=== PATIENT | male | born 1950 | race Caucasian/White ===

== ENCOUNTER 2017-06-12 09:11 | Inpatient (IN) ==
[2017-06-12] MEDS: 0.9 % Sodium Chloride 1,000 ML IVC SCH (10:04)
[2017-06-12] MEDS ORDERED: 0.9 % Sodium Chloride 1,000 ML ONE (11:00)
[2017-06-12] MEDS ORDERED: Heparin 1,000 UNITS/500 mL 500 ML ONE (11:00)
[2017-06-12] MEDS ORDERED: Nitroglycerin 1,000 MCG/10 ML VIAL IV ONE (11:01)
[2017-06-12] MEDS ORDERED: ISOVUE-370 200 ML INFUS..BTL IV ONE (11:01)
[2017-06-12] MEDS ORDERED: *HR* Heparin 10,000 UNIT/10 ML VIAL ONE (11:01)
[2017-06-12] MEDS ORDERED: Verapamil 5 MG/2 ML VIAL ONE (11:15)
--- NOTE | 2017-06-12 11:21 | History & Physical Report ---
Date of Encounter: 06/12/17 Time of Encounter: 11:00 24 Hour HP Update - Instructions Instructions: If the History and Physical is less than 30 days old and was completed prior to A.M. admission and or procedure and has NOT been updated on calendar day of procedure please complete this update prior to performing procedure. - Update Patient reports changes in Medical Condition: No Changes in examination, assessment, or condition: No Changes in Medication: No Preop tests/diagnostics Reviewed: Yes Surgery Remains Indicated: Yes Consent for Planned Operative Procedure(s) Verified: Yes - Pre-Operative Checklist Preoperative Checklist Indicated: No Prophylactic Antibiotic Ordered: No Home Medications Include Beta Coni: Yes Beta Coni Taken Today (Day of Surgery): Yes Beta Coni Taken Yesterday (Day Prior to Surgery): Yes Is VTE Prophylaxis Indicated?: NO
--- NOTE | 2017-06-12 11:21 | Pre-Sedation Evaluation ---
Pre-sedation evaluation - Pre-sedation checklist Date of procedure: 06/12/17 Procedure: [facility] Recent Vitals: Last Vital Signs Temp 98.9 F 06/12/17 09:47 Pulse 71 06/12/17 09:47 Resp 18 06/12/17 09:47 BP 108/55 06/12/17 09:47 Pulse Ox 96 06/12/17 09:47 H&P (including ROS) documented in medical record: Yes Previous reaction to sedatives/anesthetics: No Dietary Status: NPO after Midnight Airway Assessment: Patient can open mouth completely, TMJ function normal, Micrognathia (under-bite, receding chin) absent, Neck with adequate range of motion Dentition: No loose teeth or bridges Possible difficult airway: No ASA Classification *see protocol: CLASS II-Mild systemic disease Plan of Care: Pt appropriate candidate for procedure/moderate/conscious sedation , Risks/benefits of procedure/sedation discussed w/ patient/family
[2017-06-12] MEDS ORDERED: *HR* Midazolam HCl 2 MG/2 ML VIAL ONE (11:31)
[2017-06-12] MEDS ORDERED: *HR* FentaNYL (PF) 100 MCG/2 ML VIAL ONE (11:31)
[2017-06-12] MEDS ORDERED: Nitroglycerin 0.4 MG TAB.SUBL SL PRN (12:57)
--- NOTE | 2017-06-12 17:03 | Invasive Diagnostic Lab Proc ---
Name: Allen Corbett Date of Study: 06/12/2017 Date: 1950 Ht: 66.0in Medical Record#: [id number] Age: 67 Wt: 124.34lb Gender: Male BSA: 1.63 Order #: [id number] BMI: 20.08 Physicians Procedure Physician: Karlee Tamayo MD, FACC Referring MD: Mukul Angeles DO,FACQi,GIANNA FARRAR Referring MD: Staff Name Position Time In Lora Sinclair RT (R) Monitor 11:22 AM YahirNatan RT (R) Scrub 11:22 AM Sasha Madrigal RN It Project Lead 11:22 AM Amaury Melgar RN It Project Lead 11:23 AM Indications Indication Pre-op Unstable Angina Procedures Performed Procedure L HRT ARTERY/VENTRICLE ANGIO Pre-Procedure Checklist Informed consent is complete signed and on chart. H&P is on chart. ID band is on and ID verified with patient. Patient NPO for procedure The procedure was described for the patient and questions were answered. Blood Pressure: 108/55 ECG is on chart. Rhythm: NSR Plan of Care Patient will tolerate the procedure without complications. Adequate level of comfort will be maintained. Hemodynamics will remain stable Patient will recover from procedure without complications. Respiratory function will be maintained. Cardiac rhythm will remain stable. Patient temperature will be maintained. Patient and/or family have verbalized understanding of the procedure. Patient Education Chief Complaint/Reason for Test: Cardiac Cath Developmental Category: Geriatric (65+ years) Developmentally Appropriate for Age: Yes Learning Barriers: None Education Needs: Procedure Education Method: Verbal Information Taught: Cardiac Cath Educational Evaluation: Able to repeat information Intravenous Access Time IV Size Location DC'd Fluid/Drip Rate Units RN 09:59 AM Started with 20g 1 1/4" Lt Antecubital Yes 0.9NaCl 50 ml/hr Shertia Parham RN 11:36 AM Started with 22g 1 " Rt Arm 0.9NaCl 50 ml/hr Sasha Madrigal RN Allergies No Known Allergies Vital Signs Time BP (mmHg) HR (bpm) O2 Sat. RR (bpm) LOC 10:00 AM 108 / 55 71 96 % 18 5 = Fully awake and oriented or at pre-proc level 11:23 AM / % 5 = Fully awake and oriented or at pre-proc level 11:23 AM / % 5 = Fully awake and oriented or at pre-proc level 11:38 AM / % 4 = Oriented but drowsy 11:53 AM / % 4 = Oriented but drowsy 12:08 PM / % 4 = Oriented but drowsy 12:23 PM / % 4 = Oriented but drowsy 12:01 PM 98 / 54 70 100 % 12:06 PM 97 / 51 54 100 % 12:11 PM 98 / 51 49 100 % 12:12 PM 102 / 54 48 100 % 12:16 PM 88 / 48 48 99 % 12:21 PM 86 / 45 50 98 % 12:26 PM 90 / 49 53 99 % 12:31 PM 88 / 41 51 99 % 12:36 PM 95 / 49 53 100 % 12:41 PM 106 / 60 86 100 % 11:41 AM 133 / 69 66 96 % 11:46 AM 129 / 56 60 99 % 11:51 AM 121 / 67 62 99 % 11:56 AM 76 / 41 56 % 11:57 AM 84 / 36 57 % 11:59 AM 85 / 49 55 100 % 01:00 PM 92 / 54 56 100 % 01:15 PM 92 / 54 55 100 % 16 5 = Fully awake and oriented or at pre-proc level 01:30 PM 101 / 57 51 100 % 16 5 = Fully awake and oriented or at pre-proc level 01:45 PM 104 / 64 51 100 % 16 5 = Fully awake and oriented or at pre-proc level 02:00 PM 106 / 58 53 100 % 16 5 = Fully awake and oriented or at pre-proc level 02:30 PM 99 / 47 56 100 % 16 5 = Fully awake and oriented or at pre-proc level 03:00 PM 103 / 55 54 100 % 15 5 = Fully awake and oriented or at pre-proc level 04:00 PM 93 / 53 53 100 % 16 5 = Fully awake and oriented or at pre-proc level 04:56 PM 159 / 87 % Procedural Medications Time Medication Dose Units Method Given By 11:40 AM Oxygen 2 L/min nasal cannula Amaury Melgar RN 11:44 AM Versed 2 mg Intravenous Amaury Melgar RN 11:44 AM Fentanyl 50 mcg Intravenous Amaury Melgar RN 11:51 AM Benadryl 25 mg Intravenous Amaury Melgar RN 11:54 AM Lidocaine 2% 1 ml Subcutaneous Karlee Tamayo MD, FACC 11:56 AM Heparin 4000 units Nitroglycerin 200 mcg Verapamil 2.5 mg Intraarterial Karlee Tamayo MD, [facility] 11:56 AM Oxygen 4 L/min nasal cannula Sasha Madrigal RN 12:04 PM Lidocaine 2% 1 ml Subcutaneous Karlee Tamayo MD, [facility] ASA Classification: CLASS II- Mild systemic disease (i.e. well-controlled diabetes, hypertension, asthma, cigarette smoking) Thanh Score Preprocedure Postprocedure Activity 2- Moves 4 extremities sustained head lift Activity 2- Moves 4 extremities sustained head lift Circulation 2- SBP +/= 20 points of pre-anesthetic level Circulation 2- SBP +/= 20 points of pre-anesthetic level Consciousness 2- Awake and alert oriented x 3 Consciousness 2- Awake and alert oriented x 3 O2 Saturation 2- Able to maintain O2 satruation of 92% on room air O2 Saturation 2- Able to maintain O2 satruation of 92% on room air Respiratory 2- Able to deep breathe and cough well Respiratory 2- Able to deep breathe and cough well Total Score 10 Total Score 10 Contrast Agent: Isovue Diagnostic Contrast: 68 ml Total Contrast: 68 ml Fluoro Dose: 188 mGy Procedure Log Time Note Enter By 11:21 AM 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 twilson 11:22 AM Patient charges- Angio tray pack, Navilyst 3mm J, Pulse Oximetry and ACIST tubing and transducer twilson 11:22 AM Case Delayed yes, previous procedure ran long twilson 11:22 AM Lora Sinclair RT (R) Position: Monitor Time in: : twilson 11:22 AM Natan Sinclair RT (R) Position: Scrub Time in: : twilson 11:23 AM Sasha Madrigal RN Position: It Project Lead Time in: : twilson 11:23 AM Amaury Melgar RN Position: It Project Lead Time in: : twilson 11:23 AM Time: :23 Patient comfortable and pain free: Yes twilson 11:23 AM Time: :23LOC: 5 = Fully awake and oriented or at pre-proc level twilson 11:27 AM Physician arrived 11: twilson 11:28 AM Meet and greet completed twilson 11: AM Sign in performed according to hospital policy. twilson 11:28 AM Procedure start 11:28 twilson 11: AM CathStat 11:30 AM Allens test abnormal on bilateral wrists. twilson 11:38 AM Time: 11:23 Patient comfortable and pain free: Yes twilson 11:38 AM Time: 11:23LOC: 5 = Fully awake and oriented or at pre-proc level twilson 11:40 AM Time: :40 Oxygen on at 2 L/min per nasal cannula by Amaury Melgar RN twilson 11:40 AM ASA Class CLASS II- Mild systemic disease (i.e. well-controlled diabetes, hypertension, asthma, cigarette smoking) twilson 11:41 AM Vitals capture started with the following parameters, Patient=Adult, Interval=5 min, Initial Sbvuiuxz=172 mmHg, Deflation Rate=5 mmHg, Cuff placed on Right Arm 11:41 AM HR=66 bpm, SVAW=508/69 mmhg, SpO2=96.0 % 11:44 AM Time: 11:44 Versed 2 mg Intravenous Given by Amaury Melgar RN twilson 11:44 AM Time: 11:44 Fentanyl 50 mcg Intravenous Given by Amaury Melgar RN twilson 11:45 AM Recorded ECG: HR=63 Condition=Condition 1 11:46 AM Hair removed from procedure site in procedure lab using clippers. Bilateral groin prepped with Chloraprep by Lora Sinclair (R), then patient was draped. Skin intact. twilson 11:46 AM Hair removed from procedure site in procedure lab using clippers. Left wrist prepped with Chloraprep by Sasha Madrigal RN, then patient was draped. Skin intact. twilson 11:46 AM HR=60 bpm, VCUK=136/56 mmhg, SpO2=99.0 % 11:50 AM Time out performed according to hospital policy twilson 11:50 AM Pressure channel 1 zeroed. 11:51 AM Time: 11:51 Benadryl 25 mg Intravenous Given by Amaury Melgar RN twilson 11:51 AM HR=62 bpm, OYCW=662/67 mmhg, SpO2=99.0 % 11:53 AM Time: 11:38LOC: 4 = Oriented but drowsy twilson 11:53 AM Time: :38 Patient comfortable and pain free: Yes twilson 11:54 AM Time: 11:54 1 ml Lidocaine 2% to left brachial Subcutaneous Given by Karlee Tamayo MD, [facility] twilson 11:54 AM Access obtained by percutaneous puncture. 6Fr 10cm Terumo Glidesheath sheath placed in left Brachial artery. [id number] twilson 11:56 AM Time: 11:56 Patient given 4,000 units Heparin, 200 mcg Nitroglycerin, and 2.5 mg Verapamil Intraarterial by Karlee Tamayo MD, [facility]. This is given to reduce risk of vessel spasm and thrombosis. twilson 11:56 AM Time: 11:56 Oxygen on at 4 L/min per nasal cannula by Sasha Madrigal RN twilson 11:56 AM HR=56 bpm, NIBP=76/41 mmhg 11:57 AM NIBP STAT measurement started. 11:57 AM HR=57 bpm, NIBP=84/36 mmhg 11:58 AM 5Fr FR 4 catheter inserted over the wire [facility] twilson 11:58 AM NIBP STAT measurement started. 11:59 AM Wire removed, intact. twilson 11:59 AM HR=55 bpm, NIBP=85/49 mmhg, WxX6=795.0 % 12:00 PM Pressure channel 1 zeroed. 12:00 PM Wire reinserted and wire and catheter removed, intact. twilson 12:01 PM HR=70 bpm, NIBP=98/54 mmhg, BqL9=791.0 % 12:03 PM Venous access previously obtained. twilson 12:04 PM Preparing to obtain arterial access. twilson 12:05 PM Time: 12:04 1 ml Lidocaine 2% to left brachial Subcutaneous Given by Karlee Tamayo MD, [facility] twilson 12:06 PM Access obtained by percutaneous puncture. 6Fr 10cm Terumo Glidesheath sheath placed in left Brachial artery. [id number] twilson 12:06 PM HR=54 bpm, NIBP=97/51 mmhg, IsQ8=508.0 % 12:07 PM 5F JR4 reinserted over the wire into left brachial artery. twilson 12:08 PM Time: 11:53 Patient comfortable and pain free: Yes twilson 12:08 PM Time: 11:53LOC: 4 = Oriented but drowsy twilson 12:08 PM Wire removed, intact. twilson 12:10 PM Recorded Pressure: Ao, HR=49, Condition=Condition 1 (Aorta) Ao 79/39/57 12:10 PM NIBP STAT measurement started. 12:10 PM RCA angiography performed in multiple views. twilson 12:11 PM HR=49 bpm, NIBP=98/51 mmhg, DkR4=138.0 % 12:12 PM HR=48 bpm, AZHH=586/54 mmhg, LpG1=888.0 % 12:13 PM Wire reinserted. twilson 12:13 PM Catheter removed, intact. twilson 12:13 PM 5Fr FL 4 catheter inserted over the wire DN twilson 12:14 PM Recorded Pressure: Ao, HR=47, Condition=Condition 1 (Aorta) Ao 78/40/57 12:14 PM Recorded Pressure: Ao, HR=52, Condition=Condition 1 (Aorta) Ao 78/36/56 12:14 PM LCA angiography performed in multiple views. twilson 12:16 PM Wire reinserted and catheter removed. twilson 12:16 PM 5Fr Pigtail catheter inserted over the wire [facility] twilson 12:16 PM Catheter selectively placed in left ventricle twilson 12:16 PM Wire removed, intact. twilson 12:16 PM Pressure channel 1 zeroed. 12:16 PM HR=48 bpm, NIBP=88/48 mmhg, SpO2=99.0 % 12:16 PM Recorded Pressure: LV, HR=51, Condition=Condition 1 (Left Ventricle) LV 75/3/5 12:17 PM Bolus angiogram of left Ventricle complete: 8 ml/sec for a total of 24 mls twilson 12:17 PM Recorded Pressure: LV, Ao, HR=51, Condition=Condition 1 (Left Ventricle) LV 74/14/20, (Aorta) Ao 72/2/42 12:18 PM Wire reinserted and wire and catheter removed, intact. twilson 12:20 PM Coronary Dominance: right twilson 12:20 PM Procedure completed at 12:20 twilson 12:20 PM Did you address MAGALI flow and Dominance? Yes twilson 12:21 PM Sign out completed: Radiation Dose 188 mGy Fluoro Time: 4.9 Isovue 370 - 200ml contrast 68 ml given by Karlee Tamayo MD, [facility]. Complications: NoneCardiac Rehab Consult needed: NoConfirmed administered medications: Yes twilson 12:21 PM Isovue 370 - 200ml,1 Bottle(s) used. twilson 12:21 PM Estimated Blood Loss: minimal twilson 12:21 PM Post ECG Sinus Bradycardia twilson 12:21 PM Post Blood Pressure 88/48 twilson 12:21 PM 12:21 Post Pulses Bilateral radial 2+ twilson 12:21 PM HR=50 bpm, NIBP=86/45 mmhg, SpO2=98.0 % 12:22 PM Information taught Cardiac Cath twilson 12:22 PM Education needs Procedure, Plan of Care, and Responsibilities of Patient in Care twilson 12:22 PM Learning barriers :None twilson 12:22 PM Education Methods Verbal twilson 12:23 PM Education evaluation Able to repeat information twilson 12:23 PM Time: 12:08 Patient comfortable and pain free: Yes twilson 12:23 PM Time: 12:08LOC: 4 = Oriented but drowsy twilson 12:23 PM Family placed in consult room. twilson 12:23 PM Cardiothoracic surgeon consulted by [facility] 12:26 PM HR=53 bpm, NIBP=90/49 mmhg, SpO2=99.0 % 12:28 PM Venous and Arterial sheath pulled using manual compression and V+ Pad for 15 minutes by Natan Sinclair RT (R) twilson 12:31 PM HR=51 bpm, NIBP=88/41 mmhg, SpO2=99.0 % 12:32 PM Bed management called for bed on 2nd floor. twilson 12:36 PM HR=53 bpm, NIBP=95/49 mmhg, FpD8=546.0 % 12:[address] Corbett responded and aware. twilson 12:37 PM Patient still bleeding. Amaury Melgar holding manual pressure to left brachial. twilson 12:38 PM Time: 12:23 Patient comfortable and pain free: Yes twilson 12:38 PM Time: 12:23LOC: 4 = Oriented but drowsy twilson 12:38 PM Lesion found in Ostial RCA. Pre Stenosis: 60 Pre MAGALI Flow: twilson 12:39 PM Lesion found in Mid RCA. Pre Stenosis: 40 Pre MAGALI Flow: twilson 12:39 PM Lesion found in Distal RCA. Pre Stenosis: 90 Pre MAGALI Flow: twilson 12:40 PM Right Coronary, Right Posterior Descending Arteries with Right Posterolateral and Acute Marginal branches with 90 % stenosis. If graft is supplying this area, 0 % stenosis twilson 12:41 PM Lesion found in distal LMCA. Pre Stenosis: 60 Pre MAGALI Flow: twilson 12:41 PM Left Main Coronary Artery with 60% stenosis twilson 12:41 PM Lesion found in Ostial LAD. Pre Stenosis: 99 Pre MAGALI Flow: twilson 12:41 PM Proximal Left Anterior Descending Coronary Artery with 99% stenosis. If graft is supplying this territory, 0 % stenosis. twilson 12:41 PM HR=86 bpm, HPAZ=774/60 mmhg, DaW9=097.0 % 12:42 PM Lesion found in Mid LAD. Pre Stenosis: 40 Pre MAGALI Flow: twilson 12:42 PM Mid/Distal Left Anterior Descending Coronary Artery and diagonal branches with 40% stenosis. If graft is supplying this area, 0 % stenosis twilson 12:43 PM Lesion found in Proximal Circumflex. Pre Stenosis: 30 Pre MAGALI Flow: twilson 12:43 PM Lesion found in 1st Marginal. Pre Stenosis: 90 Pre MAGALI Flow: twilson 12:43 PM Circumflex, Obtuse Marginal, Left Posterior Descending, and Left Posterolateral Coronary Arteries with 90 % stenosis. If graft is supplying this area, 0 % stenosis twilson 12:44 PM Site status No bleeding/hematoma - Lt Arm as reported by Natan Sinclair RT (R) at 12:44 twilson 12:44 PM Opsite applied twilson 12:45 PM Report given to Joanne MALDONADO Pt taken to Holding room Room #14. 12:45 twilson 12:45 PM Delay to floor Bed availability twilson 12:48 PM Patient out of room: 12:48 twilson 04:04 PM report called to [address] mprater 04:[address] Corbett at bedside mprater 04:56 PM Pt transferred to [facility] via stretcher by Dyan MALDONADO and Amaury anderson Complications Complication None Hemodynamics Pressures Site Systolic/A Wave Diastolic/V Wave Mean AO 79 39 57 AO 78 40 57 AO 78 36 56 LV 75 3 5 LV 74 14 20 AO 72 2 42 Post Procedure Information Blood Pressure: 88/48 mmHg Rhythm: Sinus Bradycardia Post procedural instructions were given Surgery consult for CABG Closure Device Time Device Success/Fail 06/12/2017 12:43:00 PM Manual Compression Successful Site Checks Time Location Status Staff Sheath In? Note 12:44 PM Lt Arm No bleeding/hematoma Natan Sinclair RT (R) 01:00 PM Lt Arm No bleeding/ No Hematoma Amaury Melgar RN 01:15 PM Lt Arm No bleeding/ No Hematoma Prasad, Sherita D RN 01:30 PM Lt Arm No bleeding/ No Hematoma Sherita Parham RN 01:45 PM Lt Arm No bleeding/ No Hematoma Sherita Parham RN 02:00 PM Lt Arm No bleeding/ No Hematoma Sherita Parham RN 02:30 PM Lt Arm No bleeding/ No Hematoma Sherita Parham RN 03:00 PM Lt Arm No bleeding/ No Hematoma Maddy Jay RN 04:00 PM Lt Arm No bleeding/ No Hematoma Sherita Parham RN 04:55 PM Lt Arm No bleeding/ No Hematoma Maddy Jay RN Pulses Time Site Pre-Procedure Post-Procedure Note 06/12/2017 9:59:00 AM Bilateral radial 2+ 12:21:00 PM Bilateral radial 2+ 06/12/2017 1:00:00 PM Bilateral radial 1+ 06/12/2017 1:30:00 PM Lt Radial 1+ 06/12/2017 1:45:00 PM Lt Radial 1+ 06/12/2017 2:00:00 PM Lt Radial 2+ 06/12/2017 2:30:00 PM Lt Radial 2+ 06/12/2017 3:00:00 PM Lt Radial 2+ 06/12/2017 4:55:00 PM Lt Radial 2+ Updated by Maddy Jay RN on 06/12/2017 4:56:48 PM electronically signed on 06/12/2017 4:57:16 PM with status of Final
[2017-06-12] MEDS: Cyprohepatdine 4 MG TABLET PO SCH (20:04)
[2017-06-12] MEDS: *HR* Morphine Sulfate SR (12 HR) 30 MG TABLET.ER PO SCH (20:04)
[2017-06-12] MEDS: Metoprolol XL (24 HR) Succ 25 MG TAB.ER.24H PO SCH (20:05)
[2017-06-13] MEDS: 0.9 % Sodium Chloride 1,000 ML IVC SCH (06:08)
[2017-06-13] MEDS: Cholecalciferol (D-3) 1,000 UNIT TABLET PO SCH (08:58)
[2017-06-13] MEDS: Cyprohepatdine 4 MG TABLET PO SCH ×2 (08:59→21:32)
[2017-06-13] MEDS: *HR* Morphine Sulfate SR (12 HR) 30 MG TABLET.ER PO SCH ×2 (08:59→21:32)
[2017-06-13] MEDS: Aspirin 81 MG TAB.CHEW PO SCH (08:59)
--- NOTE | 2017-06-13 09:11 | Cardiothoracic Progress Note ---
Date of Encounter: 06/13/17 Time of Encounter: 09:08 - Assessment and plan (1) CAD (coronary artery disease) Current Visit: No Status: Acute The patient is undergoing an echocardiogram and a left lower extremity venous duplex today. The most difficult portion of performing the patient's CABG will be having adequate conduit material. I discussed the possibility of performing a hybrid procedure with CABG to the left-sided coronary arteries and PCI to the RCA lesions. The assessment and plan as outlined above was discussed with the patient and/or family members who expressed understanding and agreement. All questions were answered. Qualifiers: - Subjective Interval history: The patient remained hemodynamically stable overnight. He denies any substernal chest pain. He has no complaints. Vital Signs, Last 4 Hours Temp Pulse Resp BP Pulse Ox 06/13/17 07:44 97.5 F L 54 16 116/68 94 Clinical Data, last 8 Hours Output, Urine Amount 200 Output, Urine Amount 200 Weight 06/11/17 06/12/17 06/13/17 23:59 23:59 23:59 Weight 56.245 kg 51.5 kg - Physical Examination General: Conversant, No Apparent Distress Neck: No JVD, Normal carotid pulses Cardiac: Reg Rate and Rhythm, Normal S1 and S2, No Murmur Lungs: Normal Breath Sounds, No Wheeze, Rales, Rhonchi Neuro: Alert and responsive, No focal deficits noted Vascular: Normal capillary refill Musculoskeletal: No Chest Wall Tenderness Extremities: No Clubbing, No Cyanosis, No Edema - VTE Reasons for not Prescribing Prophylaxis: Not indicated-Anticoagulated or INR therapeutic Consult Discharge Plan - Plan [facility]errals: [facility] [Primary Care Provider] -
--- NOTE | 2017-06-13 15:12 | Cardiology Progress Note ---
Date of Encounter: 06/13/17 Time of Encounter: 15:00 Assessment and Plan (1) CAD (coronary artery disease) Current Visit: Yes Status: Acute Patient presented for outpatient [facility]; known severe PAD (follows with Dr. Dimas) . 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 Plan for CABG next week to allow for plavix washout. Last dose of plavix on 06/11/17. No reported events overnight. Left brachial access site stable. Continue asa, statin, BB. Add heparin SC for VTE. Check CBC, BMP in AM. Qualifiers: Coronary Disease-Associated Artery/Lesion type: [place] artery [place] vs. transplanted heart: [place] heart Associated angina: with unstable angina Qualified Code(s): I25.110 - Atherosclerotic heart disease of [place] coronary artery with unstable angina pectoris (2) PAD (peripheral artery disease) Current Visit: Yes Status: Chronic Severe PAD. Follows with Dr. Dimas as outpatient. (3) Essential hypertension Current Visit: Yes Status: Chronic Controlled, continue current CV medications. Discussion w patient/family: The assessment and plan as outlined above was discussed with the patient and/or family members who expressed understanding and agreement. All questions were answered. Thank you for involving us in the care of your patient. Please call with any questions. The patient will be discussed and reviewed with Dr. Forte; changes to be made accordingly. Subjective Principal diagnosis: Severe 3vCAD Interval history: Seen and examined. No chest pain overnight. Denies any issues with cath site. Objective Vital Signs, Last 4 Hours Temp Pulse Resp BP Pulse Ox 06/13/17 12:02 97.6 F 54 16 133/87 95 General: Conversant HEENT: Atraumatic, Normocephaly Cardiac: Reg Rate and Rhythm, Normal S1 and S2 Lungs: Normal Breath Sounds Neuro: Alert and responsive Extremities: No Edema, Other (left brachial access site: no hematoma, bleeding at site. +2 radial pulses. Mild edema at site. Right BKA) Results Active Medications Aspirin (Aspirin) 81 mg PO DAILY JOSEY Stop: 12/13/17 09:01 Last Admin: 06/13/17 08:59 Dose: 81 mg Atorvastatin Calcium (Lipitor) 80 mg PO HS JOSEY Stop: 12/12/17 21:01 Last Admin: 06/12/17 20:05 Dose: 80 mg Cilostazol (Pletal) 50 mg PO BID JOSEY Stop: 12/12/17 21:01 Last Admin: 06/13/17 08:59 Dose: 50 mg Cyproheptadine HCl (Periactin) 4 mg PO BID JOSEY Stop: 12/12/17 21:01 Last Admin: 06/13/17 08:59 Dose: 4 mg Escitalopram Oxalate (Lexapro) 10 mg PO DAILY JOSEY Stop: 12/13/17 09:01 Last Admin: 06/13/17 08:59 Dose: 10 mg Sodium Chloride (0.9 % Sodium Chloride) 1,000 mls @ 50 mls/hr IVC .Q20H JOSEY Stop: 12/12/17 09:31 Last Admin: 06/13/17 06:08 Dose: 50 mls/hr Lisinopril (Zestril) 5 mg PO DAILY [facility] PRN Reason: Protocol Stop: 12/13/17 09:01 Last Admin: 06/13/17 08:59 Dose: 5 mg Metoprolol Succinate (Toprol Xl) 25 mg PO HS [facility] Stop: 12/12/17 21:01 Last Admin: 06/12/17 20:05 Dose: 25 mg Morphine Sulfate (Ms Contin) 30 mg PO BID JOSEY Stop: 12/12/17 21:01 Last Admin: 06/13/17 08:59 Dose: 30 mg Nitroglycerin (Nitroglycerin) 0.4 mg SL Q5MIN PRN PRN Reason: Chest Pain Stop: 12/12/17 12:58 Omeprazole (Prilosec) 20 mg PO BID [facility] Stop: 12/12/17 21:01 Last Admin: 06/13/17 08:59 Dose: 20 mg Tamsulosin HCl (Flomax) 0.4 mg PO HS [facility] PRN Reason: Protocol Stop: 12/12/17 21:01 Last Admin: 06/12/17 20:05 Dose: 0.4 mg Terazosin HCl (Hytrin) 2 mg PO HS [facility] Stop: 12/12/17 21:01 Last Admin: 06/12/17 20:05 Dose: 2 mg Vitamin D (Vitamin D) 1,000 unit PO DAILY JOSEY Stop: 12/13/17 09:01 Last Admin: 06/13/17 08:58 Dose: 1,000 unit - Imaging and Cardiology Echo: report reviewed Cardiac cath: report reviewed Other Results: 12 hour tele: avg HR=56 SB. - EKG Interpretation EKG results cardiology: personally reviewed - VTE Reasons for not Prescribing Prophylaxis: Not indicated-Anticoagulated or INR therapeutic Consult Discharge Plan - Plan Referrals: [facility] [Primary Care Provider] -
[2017-06-13] MEDS: *HR* Heparin 5,000 UNIT/ML VIAL SQ SCH (17:31)
[2017-06-13] MEDS: Metoprolol XL (24 HR) Succ 25 MG TAB.ER.24H PO SCH (21:32)
[2017-06-14 04:17] LABS: Basophils % 0.4 %; Eosinophils # 0.3 K/mcL (0.0-0.6); Eosinophils % 3.3 %; Hematocrit 34.8 % (37.5-50.1); Immature Granulocytes % 0.1 % (0-4); Lymphocytes # 2.5 K/mcL (0.6-4.6); Lymphocytes % 32.5 %; Mean Corpuscular HGB Conc 33.6 g/dL (31.6-35.5); Mean Corpuscular Hemoglobin 30.9 pg (28.0-33.3); Mean Corpuscular Volume 91.8 fL (83.0-100.0); Mean Platelet Volume 9.8 fL (9.4-12.4); Monocytes # 0.7 K/mcL (0.0-1.3); Monocytes % 8.8 %; Neutrophils # 4.1 K/mcL (1.6-8.9); Platelet Count 241 K/mcL (140-400); Red Blood Count 3.79 M/mcL (4.19-5.50); Red Cell Distribution Width 13.1 % (11.5-14.5); Segmented Neutrophils % 54.9 %
[2017-06-14 04:23] LABS: Hemoglobin 11.7 g/dL (12.9-16.9)
[2017-06-14 04:34] LABS: BUN/Creatinine Ratio 17 (6-26); Blood Urea Nitrogen 11 mg/dL (8-23); Calcium 8.5 mg/dL (8.6-10.3); Carbon Dioxide 28 mEq/L (23-29); Chloride 108 mEq/L (98-107); Glucose 105 mg/dL (70-105); Osmolality,Calculated 288 (280-300); Potassium 3.8 mEq/L (3.5-5.1); Sodium 139 mEq/L (136-145); eGFR For African Americans > 60 (> 60); eGFR For Non-African Americans > 60 (> 60)
[2017-06-14] MEDS: *HR* Heparin 5,000 UNIT/ML VIAL SQ SCH (06:39)
--- NOTE | 2017-06-14 09:04 | Cardiology Progress Note ---
Date of Encounter: 06/14/17 Time of Encounter: 09:00 Assessment and Plan (1) CAD (coronary artery disease) Current Visit: Yes Status: Acute Patient presented for outpatient [facility]; known severe PAD (follows with Dr. Dimas) . [facility] 06/12/17: severe 3vCAD with 60% dLMCA heavily calcified; 99% ostial LAD, 40% mLAD, 30% pLCx, 90% 1st OM, 60% ostial RCA, 40% mRCA, 90% dRCA; coronary fistula from RV acute to marginal branch to RV TTE 06/13/17: LVEF 60-65%, mild LVDD, no significant valvular dysfunction, normal wall motion CT surgery consulted. Plan for CABG next week to allow for plavix washout. Last dose of plavix on 06/11/17. No reported events overnight. Left brachial access site stable. Continue asa, statin, BB. Stop ACEi d/t hypotension, decrease BB for bradycardia. Continue heparin SC for VTE. Qualifiers: Coronary Disease-Associated Artery/Lesion type: [place] artery [place] vs. transplanted heart: [place] heart Associated angina: with unstable angina Qualified Code(s): I25.110 - Atherosclerotic heart disease of [place] coronary artery with unstable angina pectoris (2) PAD (peripheral artery disease) Current Visit: Yes Status: Chronic Severe PAD. Follows with Dr. Dimas as outpatient. (3) Essential hypertension Current Visit: Yes Status: Chronic Controlled, continue current CV medications. Discussion w patient/family: The assessment and plan as outlined above was discussed with the patient and/or family members who expressed understanding and agreement. All questions were answered. Thank you for involving us in the care of your patient. Please call with any questions. The patient will be discussed and reviewed with Dr. Forte; changes to be made accordingly. Subjective Principal diagnosis: Severe 3vCAD Interval history: Seen and examined. No chest pain overnight. Denies any issues with cath site. Hypotensive this AM Objective Vital Signs, Last 4 Hours Temp Pulse Resp BP Pulse Ox 06/14/17 06:32 97.7 F 48 14 96/50 94 General: Conversant, No Apparent Distress HEENT: Atraumatic, Mucus Membranes Moist Cardiac: Reg Rate and Rhythm (bradycardiac), Normal S1 and S2 Lungs: Normal Breath Sounds Neuro: Alert and responsive Abdomen: Soft Skin: No rashes noted on visualized skin Musculoskeletal: No Chest Wall Tenderness Other: right BKA Results 06/14/17 03:46 06/14/17 03:46 Lab Results 06/14/17 06/14/17 03:46 03:46 WBC 7.5 Hgb 11.7 L D Hct 34.8 L Plt Count 241 Sodium 139 Potassium 3.8 Chloride 108 H Carbon Dioxide 28 BUN 11 Creatinine 0.64 L Glucose 105 Calcium 8.5 L Active Medications Aspirin (Aspirin) 81 mg PO DAILY [facility] Stop: 12/13/17 09:01 Last Admin: 06/13/17 08:59 Dose: 81 mg Atorvastatin Calcium (Lipitor) 80 mg PO HS [facility] Stop: 12/12/17 21:01 Last Admin: 06/13/17 21:32 Dose: 80 mg Cilostazol (Pletal) 50 mg PO BID [facility] Stop: 12/12/17 21:01 Last Admin: 06/13/17 21:32 Dose: 50 mg Cyproheptadine HCl (Periactin) 4 mg PO BID [facility] Stop: 12/12/17 21:01 Last Admin: 06/13/17 21:32 Dose: 4 mg Escitalopram Oxalate (Lexapro) 10 mg PO DAILY [facility] Stop: 12/13/17 09:01 Last Admin: 06/13/17 08:59 Dose: 10 mg Heparin Sodium (Porcine) (Heparin) 5,000 unit SQ Q12HCO [facility] Stop: 12/13/17 18:01 Last Admin: 06/14/17 06:39 Dose: 5,000 unit Metoprolol Succinate (Toprol Xl) 12.5 mg PO HS [facility] Stop: 12/14/17 21:01 Morphine Sulfate (Ms Contin) 30 mg PO BID [facility] Stop: 12/12/17 21:01 Last Admin: 06/13/17 21:32 Dose: 30 mg Nitroglycerin (Nitroglycerin) 0.4 mg SL Q5MIN PRN PRN Reason: Chest Pain Stop: 12/12/17 12:58 Omeprazole (Prilosec) 20 mg PO BID [facility] Stop: 12/12/17 21:01 Last Admin: 06/13/17 21:32 Dose: 20 mg Tamsulosin HCl (Flomax) 0.4 mg PO HS [facility] PRN Reason: Protocol Stop: 12/12/17 21:01 Last Admin: 06/13/17 21:32 Dose: 0.4 mg Terazosin HCl (Hytrin) 2 mg PO HS [facility] Stop: 12/12/17 21:01 Last Admin: 06/13/17 21:32 Dose: 2 mg Vitamin D (Vitamin D) 1,000 unit PO DAILY [facility] Stop: 12/13/17 09:01 Last Admin: 06/13/17 08:58 Dose: 1,000 unit - Imaging and Cardiology Echo: report reviewed Cardiac cath: report reviewed Other Results: 12 hour tele: avg HR=52 SB. - EKG Interpretation EKG results cardiology: personally reviewed - VTE Reasons for not Prescribing Prophylaxis: Not indicated-Anticoagulated or INR therapeutic Consult Discharge Plan - Plan [facility]errals: [facility] [Primary Care Provider] -
--- NOTE | 2017-06-14 09:52 | Cardiothoracic Progress Note ---
Date of Encounter: 06/14/17 Time of Encounter: 09:50 - Subjective Procedure(s) Performed: Patient seen and examined. Patient notably a vasculopath and has no saphenous vein graft conduit for plan CABG. Currently admitted for three-vessel CABG and exploratory options for conduit. Patient currently without any new complaints. Underwent preoperative echo yesterday which demonstrated well-preserved left ventricular function with no significant valvular abnormalities. Discussed plans to provide incentive spirometer and work on pulmonary toilet. Will need aggressive OT and PT postop given history of amputations and need for sternal precautions postop. Low potassium noted will begin by mouth potassium today Discussed planned with nursing staff. Vital Signs, Last 4 Hours Temp Pulse Resp BP Pulse Ox 06/14/17 06:32 97.7 F 48 14 96/50 94 Clinical Data, last 8 Hours Output, Urine Amount 0 Weight 06/12/17 06/13/17 06/14/17 23:59 23:59 23:59 Weight 56.245 kg 51.5 kg 52 kg - Labs 06/14/17 03:46 06/14/17 03:46 Lab Results, Last 24 hours 06/14/17 06/14/17 03:46 03:46 WBC 7.5 Hgb 11.7 L D Hct 34.8 L Plt Count 241 Sodium 139 Potassium 3.8 Chloride 108 H Carbon Dioxide 28 BUN 11 Creatinine 0.64 L Glucose 105 Calcium 8.5 L - VTE Reasons for not Prescribing Prophylaxis: Not indicated-Anticoagulated or INR therapeutic Consult Discharge Plan - Plan Referrals: [facility] [Primary Care Provider] -
[2017-06-14] MEDS: *HR* Morphine Sulfate SR (12 HR) 30 MG TABLET.ER PO SCH ×2 (10:12→20:15)
[2017-06-14] MEDS: Aspirin 81 MG TAB.CHEW PO SCH (10:12)
[2017-06-14] MEDS: Cyprohepatdine 4 MG TABLET PO SCH ×2 (10:13→20:16)
[2017-06-14] MEDS: Cholecalciferol (D-3) 1,000 UNIT TABLET PO SCH (10:13)
[2017-06-14] MEDS ORDERED: *HR* Heparin 5,000 UNIT/ML VIAL IVP PRN (10:37)
[2017-06-14 11:29] LABS: Hematocrit 37.5 % (37.5-50.1); Hemoglobin 12.6 g/dL (12.9-16.9); Mean Corpuscular HGB Conc 33.6 g/dL (31.6-35.5); Mean Corpuscular Hemoglobin 31.3 pg (28.0-33.3); Mean Corpuscular Volume 93.3 fL (83.0-100.0); Mean Platelet Volume 9.5 fL (9.4-12.4); Platelet Count 261 K/mcL (140-400); Red Blood Count 4.02 M/mcL (4.19-5.50)
[2017-06-14 11:45] LABS: INR 1.2
[2017-06-14 11:47] LABS: Activated Partial Thrombo Time 36.2 Seconds (26.0-36.0)
[2017-06-14] MEDS: Heparin 25,000 UNIT/500 ML D5W 25,000 UNIT/500 ML BAG IVC SCH (12:24)
[2017-06-14] MEDS: Metoprolol XL (24 HR) Succ 25 MG TAB.ER.24H PO SCH (20:15)
[2017-06-15 02:16] LABS: Activated Partial Thrombo Time 115.8 Seconds (26.0-36.0)
[2017-06-15 02:17] LABS: Heparin anti-factor XA UFH 0.49 IU/mL (0.30-0.70)
[2017-06-15] MEDS: Aspirin 81 MG TAB.CHEW PO SCH (08:55)
[2017-06-15] MEDS: Cyprohepatdine 4 MG TABLET PO SCH ×2 (08:55→20:16)
[2017-06-15] MEDS: *HR* Morphine Sulfate SR (12 HR) 30 MG TABLET.ER PO SCH ×2 (08:55→20:16)
[2017-06-15] MEDS: Cholecalciferol (D-3) 1,000 UNIT TABLET PO SCH (08:56)
--- NOTE | 2017-06-15 09:42 | Cardiothoracic Progress Note ---
Date of Encounter: 06/15/17 Time of Encounter: 09:39 - Subjective Procedure(s) Performed: Patient seen and examined. No acute events overnight according to nursing staff. Placed on oral potassium supplementation yesterday. No labs ordered for today. Discussed issues regarding his prior left BKA and right AKA and need for aggressive PT/OT postoperatively with sternal precautions which will be challenging given his amputee status. Discussed consideration for conduit including his left and right MITCH grafts with consideration for further venous mapping to determine if any other vein graft conduit options available. Otherwise, patient appears to be an acceptable operative candidate and will discuss case with Dr. Doherty who will be seeing patient and deciding on surgical options to be discussed with patient. Vital Signs, Last 4 Hours Temp Pulse Resp BP Pulse Ox 06/15/17 06:51 98.1 F 52 15 100/60 94 Clinical Data, last 8 Hours Output, Urine Amount 100 Output, Urine Amount 125 Output, Urine Amount 275 Weight 06/13/17 06/14/17 06/15/17 23:59 23:59 23:59 Weight 51.5 kg 52 kg 52.2 kg - Physical Examination General: Other (Notable bilateral amputee with left BKA and right AKA) - Labs 06/14/17 11:19 06/14/17 03:46 Lab Results, Last 24 hours 06/14/17 06/14/17 06/14/17 11:19 11:19 18:14 WBC 6.7 Hgb 12.6 L Hct 37.5 Plt Count 261 INR 1.2 APTT 36.2 H 106.4 H D 06/15/17 06/15/17 01:09 07:58 WBC Hgb Hct Plt Count INR APTT 115.8 H* 101.6 H - VTE Reasons for not Prescribing Prophylaxis: Not indicated-Anticoagulated or INR therapeutic Consult Discharge Plan - Plan [facility]errals: [facility] [Primary Care Provider] -
--- NOTE | 2017-06-15 09:46 | Cardiology Progress Note ---
Date of Encounter: 06/15/17 Time of Encounter: 09:40 Assessment and Plan (1) CAD (coronary artery disease) Current Visit: Yes Status: Acute Patient presented for outpatient [facility]; known severe PAD (follows with Dr. Dimas) . [facility] 06/12/17: severe 3vCAD with 60% dLMCA heavily calcified; 99% ostial LAD, 40% mLAD, 30% pLCx, 90% 1st OM, 60% ostial RCA, 40% mRCA, 90% dRCA; coronary fistula from RV acute to marginal branch to RV TTE 06/13/17: LVEF 60-65%, mild LVDD, no significant valvular dysfunction, normal wall motion CT surgery consulted. Plan for CABG next week to allow for plavix washout. Last dose of plavix on 06/11/17. No reported events overnight. Left brachial access site stable. Continue asa, statin, BB. Stop ACEi d/t hypotension, decrease BB for bradycardia. Continue heparin gtt. Qualifiers: Coronary Disease-Associated Artery/Lesion type: [place] artery [place] vs. transplanted heart: [place] heart Associated angina: with unstable angina Qualified Code(s): I25.110 - Atherosclerotic heart disease of [place] coronary artery with unstable angina pectoris (2) PAD (peripheral artery disease) Current Visit: Yes Status: Chronic Severe PAD s/p bilateral LE amputations. Follows with Dr. Dimas as outpatient. (3) Essential hypertension Current Visit: Yes Status: Chronic Controlled, continue current CV medications. Discussion w patient/family: The assessment and plan as outlined above was discussed with the patient and/or family members who expressed understanding and agreement. All questions were answered. Thank you for involving us in the care of your patient. Please call with any questions. The patient will be discussed and reviewed with Dr. Forte; changes to be made accordingly. Subjective Principal diagnosis: Severe 3vCAD Interval history: Seen and examined. No chest pain overnight. Denies any issues with cath site. Objective Vital Signs, Last 4 Hours Temp Pulse Resp BP Pulse Ox 06/15/17 06:51 98.1 F 52 15 100/60 94 General: Conversant, No Apparent Distress HEENT: Atraumatic, Normocephaly, Mucus Membranes Moist Cardiac: Other (bradycardiac) Lungs: Normal Breath Sounds Neuro: Alert and responsive Abdomen: Soft Skin: No rashes noted on visualized skin Musculoskeletal: No Chest Wall Tenderness Extremities: No Edema, Normal Pulses, Other (bilateral LE amputation; left brachial cath site stable. ) Other: Bilateral LE amputation. Results 06/14/17 11:19 06/14/17 03:46 Lab Results 06/14/17 06/14/17 06/14/17 11:19 11:19 18:14 WBC 6.7 Hgb 12.6 L Hct 37.5 Plt Count 261 INR 1.2 APTT 36.2 H 106.4 H D 06/15/17 06/15/17 01:09 07:58 WBC Hgb Hct Plt Count INR APTT 115.8 H* 101.6 H Active Medications Aspirin (Aspirin) 81 mg PO DAILY [facility] Stop: 12/13/17 09:01 Last Admin: 06/15/17 08:55 Dose: 81 mg Atorvastatin Calcium (Lipitor) 80 mg PO HS [facility] Stop: 12/12/17 21:01 Last Admin: 06/14/17 20:15 Dose: 80 mg Cilostazol (Pletal) 50 mg PO BID [facility] Stop: 12/12/17 21:01 Last Admin: 06/15/17 08:55 Dose: 50 mg Cyproheptadine HCl (Periactin) 4 mg PO BID [facility] Stop: 12/12/17 21:01 Last Admin: 06/15/17 08:55 Dose: 4 mg Escitalopram Oxalate (Lexapro) 10 mg PO DAILY [facility] Stop: 12/13/17 09:01 Last Admin: 06/15/17 08:55 Dose: 10 mg Heparin Sodium (Porcine) (Heparin) 3,100 unit 60 unit/kg (3100 unit) IVP Q6HR PRN PRN Reason: SEE COMMENTS Stop: 12/14/17 10:38 Heparin Sodium (Porcine) (Heparin) 1,600 unit 30 unit/kg (1600 unit) IVP Q6H PRN PRN Reason: SEE COMMENTS Stop: 12/14/17 10:38 Heparin Sodium/Dextrose (Heparin 25,000 Unit/500 Ml D5w) 25,000 unit in 500 mls @ 12.48 mls/hr IVC .Q24H [facility]; 12 UNIT/KG/HR PRN Reason: Protocol Stop: 12/14/17 10:46 Last Titration: 06/15/17 08:59 Dose: 6 unit/kg/hr, 6.24 mls/hr Metoprolol Succinate (Toprol Xl) 12.5 mg PO HS [facility] Stop: 12/14/17 21:01 Last Admin: 06/14/17 20:15 Dose: 12.5 mg Morphine Sulfate (Ms Contin) 30 mg PO BID [facility] Stop: 12/12/17 21:01 Last Admin: 06/15/17 08:55 Dose: 30 mg Nitroglycerin (Nitroglycerin) 0.4 mg SL Q5MIN PRN PRN Reason: Chest Pain Stop: 12/12/17 12:58 Omeprazole (Prilosec) 20 mg PO BID [facility] Stop: 12/12/17 21:01 Last Admin: 06/15/17 08:56 Dose: 20 mg Potassium Chloride (Potassium Chloride) 40 meq PO DAILY [facility] Stop: 12/14/17 10:01 Last Admin: 06/14/17 12:22 Dose: 40 meq Tamsulosin HCl (Flomax) 0.4 mg PO HS [facility] PRN Reason: Protocol Stop: 12/12/17 21:01 Last Admin: 06/14/17 20:15 Dose: 0.4 mg Terazosin HCl (Hytrin) 2 mg PO HS [facility] Stop: 12/12/17 21:01 Last Admin: 06/14/17 20:16 Dose: 2 mg Vitamin D (Vitamin D) 1,000 unit PO DAILY [facility] Stop: 12/13/17 09:01 Last Admin: 06/15/17 08:56 Dose: 1,000 unit - Imaging and Cardiology Echo: report reviewed Cardiac cath: report reviewed Other Results: 12 hour tele: avg HR=52 SB. - VTE Reasons for not Prescribing Prophylaxis: Not indicated-Anticoagulated or INR therapeutic Consult Discharge Plan - Plan Referrals: [facility] [Primary Care Provider] -
[2017-06-15] MEDS: Heparin 25,000 UNIT/500 ML D5W 25,000 UNIT/500 ML BAG IVC SCH (19:38)
[2017-06-15] MEDS: Metoprolol XL (24 HR) Succ 25 MG TAB.ER.24H PO SCH (20:16)
[2017-06-16] MEDS: *HR* Heparin 5,000 UNIT/ML VIAL IVP PRN ×2 (00:25→16:47)
[2017-06-16 06:52] LABS: Basophils % 0.4 %; Eosinophils # 0.4 K/mcL (0.0-0.6); Eosinophils % 4.6 %; Hematocrit 39.8 % (37.5-50.1); Hemoglobin 13.3 g/dL (12.9-16.9); Immature Granulocytes % 0.1 % (0-4); Lymphocytes # 2.9 K/mcL (0.6-4.6); Lymphocytes % 37.9 %; Mean Corpuscular HGB Conc 33.4 g/dL (31.6-35.5); Mean Corpuscular Volume 92.8 fL (83.0-100.0); Mean Platelet Volume 9.8 fL (9.4-12.4); Monocytes # 0.7 K/mcL (0.0-1.3); Monocytes % 9.2 %; Neutrophils # 3.7 K/mcL (1.6-8.9); Platelet Count 268 K/mcL (140-400); Red Blood Count 4.29 M/mcL (4.19-5.50); Red Cell Distribution Width 12.9 % (11.5-14.5); Segmented Neutrophils % 47.8 %
[2017-06-16 06:53] LABS: BUN/Creatinine Ratio 12 (6-26); Blood Urea Nitrogen 9 mg/dL (8-23); Carbon Dioxide 30 mEq/L (23-29); Chloride 106 mEq/L (98-107); Glucose 84 mg/dL (70-105); Osmolality,Calculated 284 (280-300); Potassium 4.2 mEq/L (3.5-5.1); Sodium 138 mEq/L (136-145); eGFR For African Americans > 60 (> 60); eGFR For Non-African Americans > 60 (> 60)
[2017-06-16] MEDS: Cyprohepatdine 4 MG TABLET PO SCH ×2 (08:31→22:39)
[2017-06-16] MEDS: *HR* Morphine Sulfate SR (12 HR) 30 MG TABLET.ER PO SCH ×2 (08:31→22:39)
[2017-06-16] MEDS: Cholecalciferol (D-3) 1,000 UNIT TABLET PO SCH (08:32)
[2017-06-16] MEDS: Aspirin 81 MG TAB.CHEW PO SCH (08:33)
--- NOTE | 2017-06-16 10:59 | Cardiothoracic Progress Note ---
Date of Encounter: 06/16/17 Time of Encounter: 10:53 - Assessment and plan (1) CAD (coronary artery disease) Current Visit: Yes Status: Acute The assessment and plan as outlined above was discussed with the patient and/or family members who expressed understanding and agreement. All questions were answered. The patient has preserved left ventricular function with left main disease and triple-vessel disease. He has good targets for revascularization and needs 3 grafts. Unfortunately, he is a vasculopath. He was an active smoker up until a time of this admission. He is status post aortobifemoral bypass grafting, bilateral femoropopliteal bypass grafting and femoral-femoral bypass grafting. He has a below the knee amputation on one side and an [id number] amputation on the other side. Ultrasound of the legs reveals no saphenous vein available for grafting. Echocardiogram reveals no significant valvular disease. 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 He does have bilateral carotid disease and needs bilateral carotid endarterectomies. I reviewed the CT angiogram of the chest with the radiologist. The left and right internal mammary arteries are patent, but appear small to me. He does have a calcified lesion at the origin of his left subclavian artery which may limit the flow through the left internal mammary artery. In addition, the patient is on Pletal which needs to be stopped prior to surgery. His Plavix was stopped. The patient is wheelchair bound from his amputations. I feel that the patient is a prohibitive risk for open heart surgery, mainly given his lack of conduit. I feel that the patient should be transferred to [facility] or [facility]. The patient prefers [facility] as it is closer to his family. The patient is a , but states that he is able to be transferred to [facility]. Qualifiers: Coronary Disease-Associated Artery/Lesion type: [place] artery [place] vs. transplanted heart: [place] heart Associated angina: with unstable angina Qualified Code(s): I25.110 - Atherosclerotic heart disease of [place] coronary artery with unstable angina pectoris - Subjective Interval history: The patient has had no chest pain since he entered the hospital. Clinical Data, last 8 Hours Output, Urine Amount 0 Output, Urine Amount 675 Weight 06/14/17 06/15/17 06/16/17 23:59 23:59 23:59 Weight 52 kg 52.2 kg 52.5 kg Lungs are clear to percussion and auscultation. Heart is in a normal sinus rhythm. - Labs 06/16/17 06:04 06/16/17 06:04 Lab Results, Last 24 hours 06/15/17 06/15/17 06/16/17 14:57 21:26 06:04 WBC Hgb Hct Plt Count APTT 42.1 H D 51.4 H Sodium 138 Potassium 4.2 Chloride 106 Carbon Dioxide 30 H BUN 9 Creatinine 0.74 Glucose 84 Calcium 9.0 06/16/17 06/16/17 06:04 06:04 WBC 7.6 Hgb 13.3 Hct 39.8 Plt Count 268 APTT 99.9 H D Sodium Potassium Chloride Carbon Dioxide BUN Creatinine Glucose Calcium - VTE Reasons for not Prescribing Prophylaxis: Not indicated-Anticoagulated or INR therapeutic Consult Discharge Plan - Plan [facility]errals: [facility] [Primary Care Provider] -
--- NOTE | 2017-06-16 13:36 | Event Note ---
Date of Encounter: 06/16/17 Time of Encounter: 12:00 - Cardiology Event Note Seen and examined. See CT surgery consult note--patient is high risk for CABG given co-morbidities , recommend [facility] tertiary hospital[facility] with [facility] for [facility]G or possible [facility]. Awaiting to hear back from [facility]. Updated patient.
--- NOTE | 2017-06-16 15:42 | Cardiology Progress Note ---
Date of Encounter: 06/16/17 Time of Encounter: 11:00 Assessment and Plan (1) CAD (coronary artery disease) Current Visit: Yes Status: Acute Patient presented for outpatient [facility]; known severe PAD (follows with Dr. Diams) . [facility] 06/12/17: severe 3vCAD with 60% dLMCA heavily calcified; 99% ostial LAD, 40% mLAD, 30% pLCx, 90% 1st OM, 60% ostial RCA, 40% mRCA, 90% dRCA; coronary fistula from RV acute to marginal branch to RV TTE 06/13/17: LVEF 60-65%, mild LVDD, no significant valvular dysfunction, normal wall motion CT surgery consulted. Plan for CABG next week to allow for plavix washout. Last dose of plavix on 06/11/17. No reported events overnight. Left brachial access site stable. Continue asa, statin, BB. Stop ACEi d/t hypotension, decrease BB for bradycardia. Continue heparin gtt. Contacted [facility] ([facility]) for assistance with transfer to [facility]. Awaiting [place] approval. Qualifiers: Coronary Disease-Associated Artery/Lesion type: [place] artery [place] vs. transplanted heart: [place] heart Associated angina: with unstable angina Qualified Code(s): I25.110 - Atherosclerotic heart disease of [place] coronary artery with unstable angina pectoris (2) PAD (peripheral artery disease) Current Visit: Yes Status: Chronic Severe PAD s/p bilateral LE amputations. Follows with Dr. Dimas as outpatient. (3) Essential hypertension Current Visit: Yes Status: Chronic Controlled, continue current CV medications. Discussion w patient/family: The assessment and plan as outlined above was discussed with the patient and/or family members who expressed understanding and agreement. All questions were answered. Thank you for involving us in the care of your patient. Please call with any questions. The patient will be discussed and reviewed with Dr. Mitchell; changes to be made accordingly. Subjective Principal diagnosis: Severe 3vCAD Interval history: Seen and examined. No chest pain overnight. Denies any issues with cath site. Objective General: Conversant HEENT: Atraumatic, Normocephaly Cardiac: Reg Rate and Rhythm, Normal S1 and S2 Lungs: Normal Breath Sounds Neuro: Alert and responsive Abdomen: Soft Skin: No rashes noted on visualized skin Other: Bilateral LE amputation Results 06/16/17 06:04 06/16/17 06:04 Lab Results 06/15/17 06/16/17 06/16/17 21:26 06:04 06:04 WBC 7.6 Hgb 13.3 Hct 39.8 Plt Count 268 APTT 51.4 H Sodium 138 Potassium 4.2 Chloride 106 Carbon Dioxide 30 H BUN 9 Creatinine 0.74 Glucose 84 Calcium 9.0 06/16/17 06/16/17 06:04 14:04 WBC Hgb Hct Plt Count APTT 99.9 H D 58.1 H Sodium Potassium Chloride Carbon Dioxide BUN Creatinine Glucose Calcium Active Medications Aspirin (Aspirin) 81 mg PO DAILY [facility] Stop: 12/13/17 09:01 Last Admin: 06/16/17 08:33 Dose: 81 mg Atorvastatin Calcium (Lipitor) 80 mg PO HS [facility] Stop: 12/12/17 21:01 Last Admin: 06/15/17 20:16 Dose: 80 mg Cilostazol (Pletal) 50 mg PO BID [facility] Stop: 12/12/17 21:01 Last Admin: 06/16/17 08:31 Dose: 50 mg Cyproheptadine HCl (Periactin) 4 mg PO BID [facility] Stop: 12/12/17 21:01 Last Admin: 06/16/17 08:31 Dose: 4 mg Escitalopram Oxalate (Lexapro) 10 mg PO DAILY [facility] Stop: 12/13/17 09:01 Last Admin: 06/16/17 08:31 Dose: 10 mg Heparin Sodium (Porcine) (Heparin) 3,100 unit 60 unit/kg (3100 unit) IVP Q6HR PRN PRN Reason: SEE COMMENTS Stop: 12/14/17 10:38 Heparin Sodium (Porcine) (Heparin) 1,600 unit 30 unit/kg (1600 unit) IVP Q6H PRN PRN Reason: SEE COMMENTS Stop: 12/14/17 10:38 Last Admin: 06/16/17 00:25 Dose: 1,600 unit Heparin Sodium/Dextrose (Heparin 25,000 Unit/500 Ml D5w) 25,000 unit in 500 mls @ 12.48 mls/hr IVC .Q24H [facility]; 12 UNIT/KG/HR PRN Reason: Protocol Stop: 12/14/17 10:46 Last Titration: 06/16/17 08:16 Dose: 7.9 unit/kg/hr, 8.216 mls/hr Metoprolol Succinate (Toprol Xl) 12.5 mg PO HS [facility] Stop: 12/14/17 21:01 Last Admin: 06/15/17 20:16 Dose: 12.5 mg Morphine Sulfate (Ms Contin) 30 mg PO BID [facility] Stop: 12/12/17 21:01 Last Admin: 06/16/17 08:31 Dose: 30 mg Nitroglycerin (Nitroglycerin) 0.4 mg SL Q5MIN PRN PRN Reason: Chest Pain Stop: 12/12/17 12:58 Omeprazole (Prilosec) 20 mg PO BID [facility] Stop: 12/12/17 21:01 Last Admin: 06/16/17 08:33 Dose: 20 mg Potassium Chloride (Potassium Chloride) 40 meq PO DAILY [facility] Stop: 12/14/17 10:01 Last Admin: 06/16/17 08:31 Dose: 40 meq Tamsulosin HCl (Flomax) 0.4 mg PO HS [facility] PRN Reason: Protocol Stop: 12/12/17 21:01 Last Admin: 06/15/17 20:16 Dose: 0.4 mg Terazosin HCl (Hytrin) 2 mg PO HS [facility] Stop: 12/12/17 21:01 Last Admin: 06/15/17 20:15 Dose: 2 mg Vitamin D (Vitamin D) 1,000 unit PO DAILY [facility] Stop: 12/13/17 09:01 Last Admin: 06/16/17 08:32 Dose: 1,000 unit - Imaging and Cardiology Echo: report reviewed Cardiac cath: report reviewed Other Results: 12 hour tele: avg HR=60 SR - EKG Interpretation EKG results cardiology: personally reviewed - VTE Reasons for not Prescribing Prophylaxis: Not indicated-Anticoagulated or INR therapeutic Consult Discharge Plan - Plan [facility]errals: [facility] [Primary Care Provider] -
[2017-06-16] MEDS: Metoprolol XL (24 HR) Succ 25 MG TAB.ER.24H PO SCH (22:42)
[2017-06-17] MEDS: Heparin 25,000 UNIT/500 ML D5W 25,000 UNIT/500 ML BAG IVC SCH (06:30)
[2017-06-17] MEDS: Aspirin 81 MG TAB.CHEW PO SCH (08:39)
[2017-06-17] MEDS: Cholecalciferol (D-3) 1,000 UNIT TABLET PO SCH (08:39)
[2017-06-17] MEDS: Cyprohepatdine 4 MG TABLET PO SCH ×2 (08:39→20:12)
[2017-06-17] MEDS: *HR* Morphine Sulfate SR (12 HR) 30 MG TABLET.ER PO SCH ×2 (08:39→20:12)
--- NOTE | 2017-06-17 10:23 | Discharge Summary ---
- NOTES TO OUTPATIENT PROVIDER Notes to Outpatient Provider: Transfer to [facility] for high-risk CABG. CDs of testing (LHC, TTE, vein mapping) sent with patient. Orders not resulted at time of discharge: Pending orders 06/18/17 05:21 PTT [Activated Partial Thrombo Time] [COAG] Timed Date of Encounter: 06/17/17 Time of Encounter: 09:00 - Discharge Diagnosis (1) CAD (coronary artery disease) Priority: Primary Status: Acute Comments: severe 3v CAD with LM involvement. CT surgery, Dr. Doherty recommends transfer to [facility]. Qualifiers: Coronary Disease-Associated Artery/Lesion type: [place] artery [place] vs. transplanted heart: [place] heart Associated angina: with unstable angina Qualified Code(s): I25.110 - Atherosclerotic heart disease of [place] coronary artery with unstable angina pectoris (2) PAD (peripheral artery disease) Priority: Secondary Status: Chronic (3) Essential hypertension Priority: Secondary Status: Chronic - Hospital Course Hospital course: Mr. Corbett is a 67 year old male who presented as outpatient on 06/12/16 for LHC due to symptoms concerning for unstable angina. Of note, recently underwent nuclear stress test which was negative for ischemia. LHC demonstrated severe 3- v CAD with left main involvement (60%) and 99% stenosis to ostial LAD. His last dose of plavix was on 06/11/17. Given his severe CAD, he was recommended to remain as inpatient for plavix wash-out. CT surgery, Dr. Doherty, evaluated patient on 06/16/17 and was considered high-risk surgical candidate due to his vascular co-morbidities (bilateral LE amputations) and recommended transfer to tertiary care center. Mr. Corbett is a and has [facility] insurance, he also has medicare and elects to be transferred to [facility] with medicare as primary insurance. Utilization review has been following patient as well. Call made to [facility] transfer center at 10:00 AM. [facility] is reported to be at full capacity, will call [facility] nursing unit when bed is available. The patient was discussed and reviewed with Dr. Mitchell who agrees with plan as stated above. Time spent discussing smoking cessation with patient: 3 to 10 minutes - Time Spent with Patient Total time spent providing and/or coordinating discharge services: Greater than 30 minutes Specific discharge activities: Bedrest with [facility] - Discharge Medications Home Medications: Aspirin 81 mg PO DAILY 11/01/14 [History] Cyprohepatdine [Periactin] 4 mg PO BID 11/01/14 [History] Escitalopram [Lexapro] 10 mg PO DAILY 11/01/14 [History] Lovastatin [Mevacor] 40 mg PO HS 11/01/14 [History] Terazosin [Hytrin] 2 mg PO HS 11/01/14 [History] Morphine Sulfate ER (24 HR) [Morphine Sulfate ER Caps] 30 mg PO BID 05/29/15 [ History] Pantoprazole Sodium [Protonix] 40 mg PO BID 30 Days tablet. 06/23/15 [Rx] Cholecalciferol (D-3) [Vitamin D] 1,000 unit PO DAILY 06/12/17 [History] Cilostazol [Pletal] 50 mg PO BID 06/12/17 [History] Tamsulosin HCl [Flomax] 0.4 mg PO HS 06/12/17 [History] Atorvastatin [Lipitor] 80 mg PO HS tablet 06/17/17 [Rx] Cyprohepatdine [Periactin] 4 mg PO BID tablet 06/17/17 [Rx] Heparin 1,600 unit IVP Q6H PRN vial 06/17/17 [Rx] Heparin 3,100 unit IVP Q6HR PRN vial 06/17/17 [Rx] Metoprolol XL (24 HR) Succ [Toprol Xl] 12.5 mg PO HS tab.er.24h 06/17/17 [Rx] Nitroglycerin 0.4 mg SL Q5MIN PRN tab.subl 06/17/17 [Rx] Potassium Chloride 40 meq PO DAILY tab.er.prt 06/17/17 [Rx] Allergies/Adverse Reactions: 3 Allergy/AdvReac Type Severity Reaction Status Date / Time No Known Allergies Allergy Verified 06/13/17 09:26 Date of admission: 06/12/17 16:52 [facility] care physician: [facility] Consults: 06/12/17 13:03 Consult to Cardiothoracic Surgery [CONS] Routine Consulting Provider: Cardiothoracic Surgery Leanne Reason for Consult: 3VCAD, eval for CABG Call Completed: Yes 06/12/17 18:50 Consult to Automatic Machines Supervisor [CONS] Routine Reason for SW Consult: CABG Discharging clinician: Stella Stephenson Anticipated date of discharge: 06/17/17 Physical Examination Vital Signs, Last 4 Hours Temp Pulse Resp BP Pulse Ox 06/17/17 07:00 97.5 F L 51 17 123/62 93 General: Conversant HEENT: Atraumatic, Normocephaly Cardiac: Reg Rate and Rhythm, Normal S1 and S2 Lungs: Normal Breath Sounds Neuro: Alert and responsive Abdomen: Soft Extremities: Other (bilateral LE amputations (L BKA, R AKA)) - Patient Status Disposition: Transfer Intermediate Care Fac Condition: Fair Functional capacity at discharge: wheelchair bound Overall status at discharge: patient is not back to baseline - Discharge Instructions [facility] Up With: [facility] [Primary Care Provider[facility] - Mukul Angeles DO [Partnered Physician] - - Diet and Activity Activity: other (bedrise) Diet: low fat, low cholesterol, low salt diet - VTE Reasons for not Prescribing Prophylaxis: Not indicated-Anticoagulated or INR therapeutic
[2017-06-17] MEDS: Metoprolol XL (24 HR) Succ 25 MG TAB.ER.24H PO SCH (20:12)
[2017-06-17 20:43] VITALS: BP 119/82
== END 2017-06-17 21:13 | DRG 287 ==
LOC: INVDIALAB 09:11 → 2NENU 16:52
PROVIDERS: ADMIT Internal Medicine Interventional Cardiology; ATTEND Internal Medicine Interventional Cardiology